=== PATIENT | male | born 1970 | race Caucasian/White ===

== ENCOUNTER 2017-05-03 19:33 | Emergency (ER) | payer BC | END 2017-05-03 20:40 | disposition home or self-care (01) | LOC: D.ER 19:33 | DX: J45.901 Unspecified asthma with (acute) exacerbation (principal); F17.200 Nicotine dependence, unspecified, uncomplicated; B20 Human immunodeficiency virus [HIV] disease ==

== ENCOUNTER 2017-10-22 06:59 | Emergency (ER) | payer MEDICAID | END 2017-10-22 08:47 | disposition home or self-care (01) | LOC: D.ER 06:59 | DX: S61.217A Laceration without foreign body of left little finger without damage to nail, initial encounter (principal); W26.0XXA Contact with knife, initial encounter; Y93.89 Activity, other specified; Y92.89 Other specified places as the place of occurrence of the external cause; B20 Human immunodeficiency virus [HIV] disease ==

== ENCOUNTER 2017-12-29 16:20 | Emergency (ER) | payer MEDICAID ==
[~2017-12-29] VITALS: Ht 167.6 cm; Wt 65.9 kg
[2017-12-29 16:27] VITALS: Ht 167.6 cm; Wt 65.9 kg
[2017-12-29] MEDS ORDERED: [UNRECOGNIZED DRUG - REMARK] (16:28)
[2017-12-29] MEDS ORDERED: PEPCID40 MG PO (18:43)
[2017-12-29] MEDS ORDERED: MEDROL DOSE PACK4 MG PO (18:43)
== END 2017-12-29 18:56 | disposition home or self-care (01) ==
LOC: D.ER 16:20
DX: L25.5 Unspecified contact dermatitis due to plants, except food (principal); F17.200 Nicotine dependence, unspecified, uncomplicated

== ENCOUNTER 2018-06-28 15:12 | Emergency (ER) | payer SELFPAY ==
[~2018-06-28] VITALS: Ht 167.6 cm; Wt 59.1 kg
[~2018-06-28 15:12] MED LIST: MEDROL DOSE PACK4 MG PO; PEPCID40 MG PO; [UNRECOGNIZED DRUG - REMARK]
[2018-06-28 15:15] VITALS: BP 147/90; Ht 167.6 cm; Wt 59.1 kg
[2018-06-28 15:54] LABS: BASOPHILS 0.7 % (0-2); EOSINOPHILS 2.8 % (0-7); HEMATOCRIT 44.1 % (42.0-54.0); HEMOGLOBIN 15.5 g/dL (13.5-17.5); IMMATURE GRANULOCYTES 0.1 % (0-5); LYMPHOCYTES 28.5 % (15-50); MCH 31.1 pg (26.0-34.0); MCHC 35.1 g/dL (31.0-37.0); MCV 88.6 fL (80.0-100.0); MEAN PLATELET VOLUME 8.9 fL (7.4-10.4); MONOCYTES 9.3 % (2-11); NEUTROPHILS 58.6 % (40-80); PLATELET COUNT 189 10x3/uL (130-400); RBC 4.98 10x6/uL (4.20-6.10); WBC 7.2 10x3/uL (4.8-10.8)
[2018-06-28 16:08] LABS: ALBUMIN 3.4 g/dL (3.4-5.0); ALKALINE PHOSPHATASE 80 U/L (46-116); ALT (SGPT) 26 U/L (10-68); BILIRUBIN - TOTAL 0.46 mg/dL (0.2-1.3); CALC OSMOLALITY 278 mosm/kg (275-300); CALCIUM 8.9 mg/dL (8.5-10.1); CARBON DIOXIDE 25.3 mmol/L (21.0-32.0); CHLORIDE - SERUM 101 mmol/L (98-107); CREATININE - SERUM 0.9 mg/dL (0.6-1.3); GLUCOSE 91 mg/dL (74-106); POTASSIUM - SERUM 4.3 mmol/L (3.5-5.1); PROTEIN - SERUM 7.8 g/dL (6.4-8.2); SODIUM 138 mmol/L (136-145); UREA NITROGEN 21 mg/dL (7-18); eGFR NON AFRICAN AMERICAN > 90 mL/min (90-120)
[2018-06-28 16:18] LABS: C-REACTIVE PROTEIN 3.6 mg/dL (0.0-0.9); LIPASE 117 U/L (73-393); PRO BNP 47 pg/mL (0-125); TROPONIN-I < 0.017 ng/mL (0.000-0.060)
[2018-06-28] MEDS ORDERED: TESSALON PERLE100 MG PO (17:12)
[2018-06-28] MEDS ORDERED: ZITHROMAX500 MG PO (17:12)
== END 2018-06-28 17:26 | disposition home or self-care (01) ==
LOC: D.ER 15:12
PROVIDERS: Family Medicine
DX: J20.9 Acute bronchitis, unspecified (principal); B20 Human immunodeficiency virus [HIV] disease; R09.89 Other specified symptoms and signs involving the circulatory and respiratory systems; F17.200 Nicotine dependence, unspecified, uncomplicated

== ENCOUNTER → 2018-07-16 15:01 | Outpatient (CLI) | payer OTHER ==
[2018-06-28 15:15] VITALS: BMI 21.0
[~2018-07-16 15:01] MED LIST changes: +TESSALON PERLE100 MG PO; +ZITHROMAX500 MG PO
== END | disposition home or self-care (01) ==
LOC: D.RAD 15:01
DX: Z13.228 Encounter for screening for other metabolic disorders (principal); Z21 Asymptomatic human immunodeficiency virus [HIV] infection status; A53.9 Syphilis, unspecified; F17.210 Nicotine dependence, cigarettes, uncomplicated; R09.1 Pleurisy

== ENCOUNTER 2019-05-10 19:24 | Emergency (ER) | payer MEDICAID ==
[~2019-05-10] VITALS: Ht 167.6 cm; Wt 63.6 kg
[2019-05-10 19:34] VITALS: Ht 167.6 cm; Wt 63.6 kg
[2019-05-10] MEDS ORDERED: GENVOYA (19:35)
[2019-05-10] MEDS ORDERED: TRAZODONE HCL150 MG PO (19:36)
[2019-05-10] MEDS ORDERED: DIFLUCAN100 MG PO (20:00)
--- NOTE | 2019-05-10 20:29 | NUR ---
PATIENT IN ER-8, CAME IN FOR THRUSH. PATIENT HAS A HISTORY OF SUICIDE, HOWEVER HE IS NOT SUICIDAL AT THIS TIME. HE HAS A GOOD SUPPORT SYSTEM. RESOURCES GIVEN TO PATIENT WITH NUMBERS AND EMAIL AVAILABLE
[2019-05-10 21:00] VITALS: BP 136/72
== END 2019-05-10 21:01 | disposition home or self-care (01) ==
LOC: D.ER 19:24
DX: B20 Human immunodeficiency virus [HIV] disease (principal); B37.0 Candidal stomatitis; K13.79 Other lesions of oral mucosa; J02.9 Acute pharyngitis, unspecified; J44.9 Chronic obstructive pulmonary disease, unspecified; Z72.0 Tobacco use